=== PATIENT | male | born 1945 | race Caucasian/White ===

== ENCOUNTER 2021-01-12 22:53 | Inpatient (IN) | payer MEDICARE ==
[~2021-01-12] VITALS: Ht 180.3 cm; Wt 90.7 kg
[2021-01-12] MEDS ORDERED: ASPIRIN 81 MG CHEW TAB PO ONE (23:00)
[2021-01-12] MEDS ORDERED: MORPHINE SULFATE INJ 4 MG/ML INJ 1ML IV STA (23:12)
[2021-01-12] MEDS ORDERED: NITROGLYCERIN 2% OINT 1 GM PKT TOP STA (23:16)
[2021-01-12 23:35] LABS: BASOPHILS % 0.4 % (0.0-1.0); EOSINOPHILS # (AUTO) 0.1 (0.0-0.4); EOSINOPHILS % 1.6 % (0.0-6.0); HEMOGLOBIN 11.3 g/dL (14.0-18.0); LYMPHOCYTES # (AUTO) 0.8 (1.0-3.2); LYMPHOCYTES % 11.5 % (18.0-39.1); MEAN CORPUSCULAR HEMOGLOBIN 26.8 pg (28-32); MEAN CORPUSCULAR HGB CONC 31.4 g/dL (31-35); MEAN CORPUSCULAR VOLUME 85.5 fL (81-99); MONOCYTES # (AUTO) 0.6 (0.2-0.8); MONOCYTES % 8.9 % (4.4-11.3); NEUTROPHILS # (AUTO) 5.3 (2.1-6.9); PLATELET COUNT 178 x10e3/uL (140-360); RED BLOOD COUNT 4.21 x10e6/uL (4.3-5.7); RED CELL DISTRIBUTION WIDTH 14.6 % (11.7-14.4)
[2021-01-12 23:54] LABS: ALBUMIN 4.3 g/dL (3.5-5.0); ALBUMIN/GLOBULIN RATIO 1.2 (0.8-2.0); ANION GAP 15.7 mmol/L (8-16); CALCIUM 9.6 mg/dL (8.4-10.2); CREATININE, SERUM 1.85 mg/dL (0.72-1.25); POTASSIUM 4.7 mmol/L (3.5-5.1)
[2021-01-13] VITALS (8 sets, daily range): BP systolic 130–174; BP diastolic 67–79
[2021-01-13] LABS: CREATINE KINASE MB 2.5 ng/mL (0-5.0)
[2021-01-13] MEDS ORDERED: LEVOTHYROXINE50 MCG PO
[2021-01-13] MEDS ORDERED: MIRTAZAPINE7.5 MG PO
[2021-01-13] MEDS ORDERED: AMLODIPINE BESY10 MG PO
[2021-01-13] MEDS ORDERED: VITAMIN B-1100 M1 PO
[2021-01-13] MEDS ORDERED: PRAMIPEXOLE D0.25 MG PO
[2021-01-13] MEDS ORDERED: BUMETANIDE1 MG PO
[2021-01-13] MEDS ORDERED: ELIQUIS5 MG PO
[2021-01-13] MEDS ORDERED: LISINOPRIL10 MG PO
[2021-01-13] MEDS ORDERED: PROTONIX20 MG PO
[2021-01-13] MEDS ORDERED: FAMOTIDINE20 MG PO
[2021-01-13] MEDS ORDERED: CARVEDILOL12.5 MG PO
[2021-01-13] MEDS ORDERED: FOLIC ACID0.4 MG PO
[2021-01-13] MEDS ORDERED: FINASTERIDE5 MG PO
[2021-01-13] MEDS ORDERED: IOPAMIDOL 370 MG/ML 200 ML INFUS..BTL INJ ONE (00:28)
[2021-01-13] MEDS ORDERED: SODIUM CHLORIDE 0.9% 50ML 50 ML ONE (00:28)
[2021-01-13] MEDS ORDERED: HYDRALAZINE HCL 20 MG/ML VIAL IV STA (00:43)
[2021-01-13] MEDS ORDERED: ONDANSETRON HCL INJ 2MG/ML 2ML 2 MG/ML VIAL IV PRN (00:45)
[2021-01-13] MEDS ORDERED: ASPIRIN 81 MG CHEW TAB PO ONE (00:45)
[2021-01-13] MEDS ORDERED: ENOXAPARIN SODIUM INJ 100 MG/ML SYR SC STA (01:09)
[2021-01-13] MEDS: HYDROMORPHONE 1MG/1ML INJ IV PRN ×5 (01:30→20:51)
[2021-01-13 01:51] LABS: CREATINE KINASE MB 2.3 ng/mL (0-5.0)
[2021-01-13] MEDS ORDERED: DEXTROSE 50% SYRINGE 50 ML IV PRN (08:30)
[2021-01-13 09:10] LABS: CREATINE KINASE MB 3.1 ng/mL (0-5.0)
[2021-01-13] MEDS: SODIUM CHLORIDE 0.9% 1000ML 1,000 ML IV SCH ×2 (09:11→15:58)
[2021-01-13] MEDS ORDERED: INSULIN REGULAR, HUMAN 100 UNIT/1 ML 3ML VIAL SQ ONE (09:30)
[2021-01-13] MEDS ORDERED: CLONIDINE HCL 0.1 MG TAB PO PRN (11:15)
[2021-01-13] MEDS ORDERED: CLOPIDOGREL BISULFATE 300 MG TAB-DO NOT STOCK PO ONE (11:15)
[2021-01-13] MEDS ORDERED: CLOPIDOGREL BISULFATE 75 MG TAB PO ONE (11:30)
[2021-01-13] MEDS: INSULIN REGULAR, HUMAN 100 UNIT/1 ML 3ML VIAL SQ SCH ×3 (11:48→21:09)
[2021-01-13] MEDS: CARVEDILOL 12.5 MG TAB PO SCH (15:58)
[2021-01-13 19:08] LABS: CREATINE KINASE MB 2.7 ng/mL (0-5.0)
[2021-01-13] MEDS: PRAMIPEXOLE DIHYDROCHLORIDE 0.25 MG TAB PO SCH (23:15)
[2021-01-13] MEDS ORDERED: TRAMADOL HCL 50 MG TAB PO PRN (23:30)
[2021-01-13] MEDS ORDERED: CHLORDIAZEPOXIDE HCL 10 MG CAP PO PRN (23:30)
[2021-01-14] VITALS (8 sets, daily range): BP systolic 116–155; BP diastolic 44–83
[2021-01-14] MEDS: MIRTAZAPINE 15 MG TAB PO SCH ×2 (00:09→21:00)
[2021-01-14] MEDS: HYDROMORPHONE 1MG/1ML INJ IV PRN ×2 (05:00→22:08)
[2021-01-14] MEDS: LEVOTHYROXINE SODIUM 50 MCG TAB PO SCH (06:01)
[2021-01-14] MEDS: SODIUM CHLORIDE 0.9% 1000ML 1,000 ML IV SCH (06:02)
[2021-01-14 06:37] LABS: BASOPHILS % 0.3 % (0.0-1.0); EOSINOPHILS # (AUTO) 0.1 (0.0-0.4); EOSINOPHILS % 1.8 % (0.0-6.0); HEMATOCRIT 31.5 % (38.2-49.6); HEMOGLOBIN 9.6 g/dL (14.0-18.0); LYMPHOCYTES # (AUTO) 0.8 (1.0-3.2); LYMPHOCYTES % 12.4 % (18.0-39.1); MEAN CORPUSCULAR HEMOGLOBIN 26.7 pg (28-32); MEAN CORPUSCULAR HGB CONC 30.5 g/dL (31-35); MEAN CORPUSCULAR VOLUME 87.7 fL (81-99); MONOCYTES # (AUTO) 0.5 (0.2-0.8); MONOCYTES % 8.3 % (4.4-11.3); NEUTROPHILS # (AUTO) 4.7 (2.1-6.9); NEUTROPHILS % 76.7 % (38.7-80.0); PLATELET COUNT 141 x10e3/uL (140-360); RED BLOOD COUNT 3.59 x10e6/uL (4.3-5.7); RED CELL DISTRIBUTION WIDTH 14.6 % (11.7-14.4)
[2021-01-14 06:51] LABS: ALBUMIN/GLOBULIN RATIO 1.1 (0.8-2.0); ALKALINE PHOSPHATASE 82 IU/L (40-150); ANION GAP 10.7 mmol/L (8-16); BLOOD UREA NITROGEN 30 mg/dL (7-26); BUN/CREATININE RATIO 18 (6-25); CALCIUM 8.6 mg/dL (8.4-10.2); CARBON DIOXIDE 27 mmol/L (22-29); CHLORIDE 103 mmol/L (98-107); CREATININE, SERUM 1.65 mg/dL (0.72-1.25); EST GLOMERULAR FILTRATION RATE 41 ML/MIN (60-); GLUCOSE 177 mg/dL (74-118); POTASSIUM 4.7 mmol/L (3.5-5.1); SODIUM 136 mmol/L (136-145)
[2021-01-14 06:53] LABS: ALANINE AMINOTRANSFERASE < 6 IU/L (0-55); ALBUMIN 3.2 g/dL (3.5-5.0)
[2021-01-14 07:27] LABS: CHOL/HDL RATIO 5.4 (3.9-4.7)
[2021-01-14] MEDS: INSULIN REGULAR, HUMAN 100 UNIT/1 ML 3ML VIAL SQ SCH ×4 (07:30→21:00)
[2021-01-14 07:47] LABS: THYROID STIMULATING HORMONE 9.516 uIU/mL (0.350-4.940)
[2021-01-14] MEDS ORDERED: ENOXAPARIN SOD INJ 40 MG/0.4 ML SYR SC SCH (09:00)
[2021-01-14] MEDS: FAMOTIDINE 20 MG TAB PO SCH (10:11)
[2021-01-14] MEDS: FOLIC ACID 1 MG TAB PO SCH (10:11)
[2021-01-14] MEDS: CLOPIDOGREL BISULFATE 75 MG TAB PO SCH (10:11)
[2021-01-14] MEDS: THIAMINE HCL 100 MG TAB PO SCH (10:11)
[2021-01-14] MEDS: FINASTERIDE 5 MG TAB PO SCH (10:11)
[2021-01-14] MEDS: PANTOPRAZOLE SOD 40 MG TABEC PO SCH (10:11)
[2021-01-14] MEDS: CARVEDILOL 12.5 MG TAB PO SCH ×2 (10:12→18:07)
[2021-01-14] MEDS: DOXYCYCLINE HYCLATE TABLET 100 MG TAB PO SCH ×2 (10:27→21:00)
[2021-01-14] MEDS: CEFTRIAXONE SOD 1 GM in SODIUM CHLORIDE 0.9% 50ML 50 ML IV SCH (10:28)
[2021-01-14 15:04] LABS: BASOPHILS % 0.4 % (0.0-1.0); EOSINOPHILS # (AUTO) 0.1 (0.0-0.4); EOSINOPHILS % 2.6 % (0.0-6.0); HEMATOCRIT 30.3 % (38.2-49.6); HEMOGLOBIN 9.3 g/dL (14.0-18.0); LYMPHOCYTES # (AUTO) 0.9 (1.0-3.2); LYMPHOCYTES % 18.7 % (18.0-39.1); MEAN CORPUSCULAR HGB CONC 30.7 g/dL (31-35); MEAN CORPUSCULAR VOLUME 87.8 fL (81-99); MONOCYTES # (AUTO) 0.5 (0.2-0.8); MONOCYTES % 10.6 % (4.4-11.3); NEUTROPHILS # (AUTO) 3.1 (2.1-6.9); NEUTROPHILS % 67.3 % (38.7-80.0); PLATELET COUNT 135 x10e3/uL (140-360); RED BLOOD COUNT 3.45 x10e6/uL (4.3-5.7); RED CELL DISTRIBUTION WIDTH 14.6 % (11.7-14.4)
[2021-01-14] MEDS ORDERED: APIXABAN 5 MG TABLET PO SCH (17:00)
[2021-01-14] MEDS: PRAMIPEXOLE DIHYDROCHLORIDE 0.25 MG TAB PO SCH (21:00)
[2021-01-15 00:40] VITALS: BP 140/68
[2021-01-15 04:00] VITALS: BP 152/61
[2021-01-15] MEDS: LEVOTHYROXINE SODIUM 50 MCG TAB PO SCH (05:45)
[2021-01-15 05:57] LABS: BASOPHILS % 0.4 % (0.0-1.0); EOSINOPHILS # (AUTO) 0.1 (0.0-0.4); EOSINOPHILS % 2.4 % (0.0-6.0); HEMATOCRIT 31.3 % (38.2-49.6); HEMOGLOBIN 9.8 g/dL (14.0-18.0); LYMPHOCYTES # (AUTO) 0.8 (1.0-3.2); LYMPHOCYTES % 14.9 % (18.0-39.1); MEAN CORPUSCULAR HEMOGLOBIN 27.2 pg (28-32); MEAN CORPUSCULAR HGB CONC 31.3 g/dL (31-35); MEAN CORPUSCULAR VOLUME 86.9 fL (81-99); MONOCYTES # (AUTO) 0.5 (0.2-0.8); MONOCYTES % 9.8 % (4.4-11.3); NEUTROPHILS # (AUTO) 3.8 (2.1-6.9); NEUTROPHILS % 72.1 % (38.7-80.0); PLATELET COUNT 152 x10e3/uL (140-360); RED CELL DISTRIBUTION WIDTH 14.4 % (11.7-14.4)
[2021-01-15 06:25] LABS: ALBUMIN 3.2 g/dL (3.5-5.0); ALBUMIN/GLOBULIN RATIO 1.1 (0.8-2.0); CALCIUM 8.6 mg/dL (8.4-10.2); CREATININE, SERUM 1.62 mg/dL (0.72-1.25)
[2021-01-15] MEDS: INSULIN REGULAR, HUMAN 100 UNIT/1 ML 3ML VIAL SQ SCH (07:30)
[2021-01-15 07:57] VITALS: BP 153/76
[2021-01-15] MEDS: THIAMINE HCL 100 MG TAB PO SCH (09:00)
[2021-01-15] MEDS: DOXYCYCLINE HYCLATE TABLET 100 MG TAB PO SCH (09:00)
[2021-01-15] MEDS: FINASTERIDE 5 MG TAB PO SCH (09:00)
[2021-01-15] MEDS: CARVEDILOL 12.5 MG TAB PO SCH (09:00)
[2021-01-15] MEDS: PANTOPRAZOLE SOD 40 MG TABEC PO SCH (09:00)
[2021-01-15] MEDS: FOLIC ACID 1 MG TAB PO SCH (09:00)
[2021-01-15] MEDS: CLOPIDOGREL BISULFATE 75 MG TAB PO SCH (09:00)
[2021-01-15] MEDS: FAMOTIDINE 20 MG TAB PO SCH (09:00)
[2021-01-15] MEDS ORDERED: ONDANSETRON HCL 4 MG ORAL DISINTEGRATING TAB PO PRN (09:15)
[2021-01-15] MEDS ORDERED: FUROSEMIDE INJ 10 MG/ML 4 ML VIAL IV ONE (09:30)
[2021-01-15 09:53] VITALS: BP 153/76
[2021-01-15] MEDS: CEFTRIAXONE SOD 1 GM in SODIUM CHLORIDE 0.9% 50ML 50 ML IV SCH (10:15)
[2021-01-15] MEDS ORDERED: APIXABAN 5 MG TABLET PO SCH (17:00)
== END 2021-01-15 14:20 | disposition home or self-care (01) | DRG 291 ==
LOC: ER 22:56 → ERHOLD 01-13 00:55 → MED/SURG3 01-13 02:28 → OBSVTOIN 01-13 23:10
PROVIDERS: ADMIT Internal Medicine; ATTEND Internal Medicine
DX: I13.0 Hypertensive heart and chronic kidney disease with heart failure and stage 1 through stage 4 chronic kidney disease, or unspecified chronic kidney disease (principal); I50.33 Acute on chronic diastolic (congestive) heart failure; J18.9 Pneumonia, unspecified organism; D64.9 Anemia, unspecified; I25.10 Atherosclerotic heart disease of native coronary artery without angina pectoris; N18.30 Chronic kidney disease, stage 3 unspecified; E11.22 Type 2 diabetes mellitus with diabetic chronic kidney disease; Z88.5 Allergy status to narcotic agent; Z88.8 Allergy status to other drugs, medicaments and biological substances; Z88.0 Allergy status to penicillin; Z79.01 Long term (current) use of anticoagulants; Z95.2 Presence of prosthetic heart valve; Z95.1 Presence of aortocoronary bypass graft; Z95.0 Presence of cardiac pacemaker; Z20.822 Contact with and (suspected) exposure to COVID-19
CPT/HCPCS: 36415; 71045; 71260; 80053; 80061; 82550; 82553; 82948; 83880; 84443; 84484; 85025; 85379; 93005; 93306; 96361; 96365; 99284; J0696; J1170; J1650; J1817; J2270; J2405; J3411; J7030; Q9967; U0002